=== PATIENT | male | born 1960 | race Caucasian/White ===

== ENCOUNTER 2019-07-14 14:25 | Day surgery (SDC) | payer BC, SELFPAY ==
[2019-07-14] VITALS (7 sets, daily range): BP systolic 128–172; BP diastolic 83–105; PULSE 87–101; RESP 16–25; TEMP 36.6–37.2; O2SAT 95–97
--- NOTE | 2019-07-14 14:52 | ED.GENADULT ---
HPI - General Adult General Chief complaint: Unspecified Stated complaint: Food bolus Time Seen by Provider: 07/14/19 14:28 Source: patient Mode of arrival: ambulatory Limitations: no limitations History of Present Illness HPI narrative: 59 m h/o being scoped 8 years ago for erosive esophagitis (dr varma) now w/ c/o esoph FB (steak) since last night spitting out, spit, cannot swallow Onset (ago): hour(s) Radiation: non-radiation Severity: moderate Pain Consistency: constant Relieving factors: none Exacerbating factors: eating Associated symptoms: denies other symptoms Treatments prior to arrival: none Related Data Home Medications Medication Instructions Recorded Confirmed amlodipine 5 mg PO DAILY 07/14/19 lisinopril 10 mg PO DAILY 07/14/19 loperamide [Imodium A-D] 2 mg PO QID 07/14/19 omeprazole 40 mg PO DAILY 07/14/19 Allergies Allergy/AdvReac Type Severity Reaction Status Date / Time latex Allergy Unknown Swelling Verified 07/14/19 14:36 of Lip/Tongue/Throat Review of Systems Review of Systems: All systems reviewed & are unremarkable except as noted in HPI and below Constitutional: Constitutional: Denies chills and Denies fever(s) ENT: Reports dysphagia and Denies sore throat Cardiovascular: Cardiovascular: Denies chest pain Respiratory: Respiratory: Denies cough and Denies dyspnea Gastrointestinal: Gastrointestinal: Denies nausea and Denies vomiting Genitourinary: Genitourinary: Reports no additional male genitourinary complaints Musculoskeletal: Musculoskeletal: Reports no additional musculoskeletal complaints Neurologic: Denies headache(s), Denies numbness and Denies weakness [facility] Family History Family History Sibling Family history of diabetes mellitus in first degree relative Mother Family history of lymphoma Patient's mother is Father Carcinoma of colon Social History Social History Smoking status: Heavy tobacco smoker Alcohol intake: current Gender identity (if verbalized by the patient): Male Exam Const: General: no acute distress and alert Orientation/consciousness: patient oriented x3 HENMT: Head: normal to inspection Mouth: Yes Normal oral and palatal mucosa present Eyes: Conjunctivae: conjunctivae normal EOM: EOMs intact bilaterally Neck: Neck: normal visual inspection and no lymphadenopathy Chest: Chest palpation & inspection: normal inspection of the chest Resp: Effort & Inspection: normal respiratory effort Auscultation: clear to auscultation bilaterally Cardio: Rate: regular rate Rhythm: regular rhythm GI: Inspection: non-distended GI Palp: Yes Soft to palpation and No Tenderness to palpation present (GI) Skin: General skin exam: normal color Rashes: no rashes Neuro: General: patient oriented x3 Extrem: General: normal to inspection Psych: Mental Status: mental status grossly normal Course Course Emergency Course: d/w gi, will go to gi Vital Signs Vital signs: Vital Signs Temperature 36.6 C 07/14/19 14:30 Pulse Rate 101 H 07/14/19 14:30 Respiratory Rate 18 07/14/19 14:30 Blood Pressure 164/105 H 07/14/19 14:30 Pulse Oximetry 95 07/14/19 14:30 Temperature 36.6 C 07/14/19 14:30 Pulse Rate 101 H 07/14/19 14:30 Respiratory Rate 18 07/14/19 14:30 Blood Pressure 164/105 H 07/14/19 14:30 Pulse Oximetry 95 07/14/19 14:30 Medical Decision Making Vital Signs Vital Signs: Vital Signs Temperature 36.6 C 07/14/19 14:30 Pulse Rate 101 H 07/14/19 14:30 Respiratory Rate 18 07/14/19 14:30 Blood Pressure 164/105 H 07/14/19 14:30 Pulse Oximetry 95 07/14/19 14:30 Temperature 36.6 C 07/14/19 14:30 Pulse Rate 101 H 07/14/19 14:30 Respiratory Rate 18 07/14/19 14:30 Blood Pressure 164/105 H 07/14/19 14:30 Pulse Oximetry 95 07/14/19 14:30
[2019-07-14] MEDS: LACTATED RINGERS 1,000 ML 30 ML IV CONT (15:06)
--- NOTE | 2019-07-14 15:41 | WPDANESEPPF ---
Anes - Initial Pre Proc Eval Procedure: Operation Date: 07/14/19 16:00 Proposed Procedures p Esophagogastroduodenoscopy/Stent Removal - Murtaaz Taveras MD Date/Time: 07/14/19 15:41 Surgeon: Murtaza Taveras MD Pre Op Diagnosis: Food bolus Patient Data Age: 59 Gender: M Height: 1.78 m Weight: 84.09 kg Last Vital Signs Temp 36.6 C 07/14/19 14:30 Pulse 96 07/14/19 15:35 Resp 18 07/14/19 15:35 BP 158/90 H 07/14/19 15:35 Pulse Ox 96 07/14/19 15:35 Allergies Allergy/AdvReac Type Severity Reaction Status Date / Time latex Allergy Unknown Swelling Verified 07/14/19 14:36 of Lip/Tongue/Throat Home Medications Medication Instructions Recorded Confirmed Type amlodipine 5 mg PO DAILY 07/14/19 History lisinopril 10 mg PO DAILY 07/14/19 History loperamide [Imodium A-D] 2 mg PO QID 07/14/19 History omeprazole 40 mg PO DAILY 07/14/19 History Patient hx anesthesia problems: none Family hx anesthesia problems: none PMFSH Past Medical History Medical History (Updated 07/14/19 @ 15:45 by Giorgio Browning MD) COPD (chronic obstructive pulmonary disease) Depression Esophageal foreign body ETOH abuse HTN (hypertension) Family History Family History Sibling Family history of diabetes mellitus in first degree relative Mother Family history of lymphoma Patient's mother is Father Carcinoma of colon Social History Social History Smoking status: Heavy tobacco smoker Alcohol intake: current Gender identity (if verbalized by the patient): Male Anes - Eval Final PreProcedure Day of Procedure 07/14/19 15:41 Patient weight: normal Heart: regular rate and rhythm Lungs: clear to auscultation and normal air movement Airway: Mallampati scale class II Neurological: alert and oriented Last oral intake: >/= 8 hours ASA classification: III Emergent: yes Anesthetic plan: proceed Anesthesia type and monitoring: general GIVS and ETT Informed Consent: The patient's anesthetic plan and its attendant risks and benefits were discussed with the patient/family/POA. Questions were solicited and answers provided to the satisfaction of the patient/family/POA.
--- NOTE | 2019-07-14 16:50 | WPDGICN ---
Assessment and Plan Assessment and plan (1) Esophageal foreign body: Qualifiers: Encounter type: initial encounter Qualified Code(s): T18.108A - Unspecified foreign body in esophagus causing other injury, initial encounter Code(s): T18.108A - Unspecified foreign body in esophagus causing other injury, initial encounter Status: Acute Assessment and Plan: we are going to proceed with urgent EGD given food bolus, more recommendations to follow (2) Dysphagia: Qualifiers: Dysphagia type: pharyngoesophageal phase Qualified Code(s): R13.14 - Dysphagia, pharyngoesophageal phase Code(s): R13.10 - Dysphagia, unspecified Status: Acute (3) Carlos esophagus: Qualifiers: Carlos's esophagus type: without dysplasia Qualified Code(s): K22.70 - Carlos's esophagus without dysplasia Code(s): K22.70 - Carlos's esophagus without dysplasia Status: Acute (4) ETOH abuse: Code(s): F10.10 - Alcohol abuse, uncomplicated Status: Acute (5) HTN (hypertension): Qualifiers: Hypertension type: essential hypertension Qualified Code(s): I10 - Essential (primary) hypertension Code(s): I10 - Essential (primary) hypertension Status: Acute GI Consult Note Consult date/time: 07/14/19 16:50 Reason for consult: food bolus HPI: Kosta Samson is a 59 year old male with history of erosive esophagitis and Carlos's esophagus with last EGD [address] Mason with balloon dilation up to 18 mm (had stricture), that EGD was a follow up after he had previous food bolus that was treated endoscopically. He is here after steak got stuck around 8 pm last night and since then unable to swallow even own saliva therefore came to ER. He is supposed to use omeprazole daily. Review of Systems Constitutional: Constitutional: Denies headache(s) and Denies weakness Eyes: Eyes: Denies blurry vision ENT: Reports Normal hearing present, Denies headache(s) and Denies neck pain Cardiovascular: Cardiovascular: Denies chest pain and Denies dyspnea Respiratory: Respiratory: Denies dyspnea Gastrointestinal: Gastrointestinal: Reports no additional gastrointestinal complaints Genitourinary: Genitourinary: Denies dysuria Musculoskeletal: Musculoskeletal: Denies neck pain Integumentary/Breasts: Skin/Breast: Denies dry skin Neurologic: Reports Normal hearing present, Denies headache(s) and Denies weakness Psychiatric: Psychiatric: Denies anxiety Endocrine: Endocrine: Denies change in body appearance Hematologic/Lymphatic: Hematologic/Lymphatic: Denies easy bleeding Allergic/Immunologic: Allergic/Immunologic: Denies urticaria PMFSH Past Medical History Medical History (Updated 07/14/19 @ 16:54 by Murtaza Taveras MD) Carlos esophagus COPD (chronic obstructive pulmonary disease) Depression Dysphagia Esophageal foreign body ETOH abuse HTN (hypertension) Family History Family History Sibling Family history of diabetes mellitus in first degree relative Mother Family history of lymphoma Patient's mother is Father Carcinoma of colon Social History Social History Smoking status: Heavy tobacco smoker Alcohol intake: current Gender identity (if verbalized by the patient): Male Meds Home Medications and Allergies Home Medications Medication Instructions Recorded Confirmed Type amlodipine 5 mg PO DAILY 07/14/19 History lisinopril 10 mg PO DAILY 07/14/19 History loperamide [Imodium A-D] 2 mg PO QID 07/14/19 History omeprazole 40 mg PO DAILY 07/14/19 History Allergies Allergy/AdvReac Type Severity Reaction Status Date / Time latex Allergy Unknown Swelling Verified 07/14/19 14:36 of Lip/Tongue/Throat Vital Signs Vital Signs - 24 hr 07/14/19 14:30 07/14/19 15:27 07/14/19 15:35
== END 2019-07-14 17:37 | disposition home or self-care (01) ==
LOC: ANHED 14:43 → ANHSURGERY 15:07
PROVIDERS: Emergency Provider Emergency Medicine; PCP Physician Assistant; Visit Provider Internal Medicine Gastroenterology
PROC: 0DP08DZ Removal of Intraluminal Device from Upper Intestinal Tract, Via Natural or Artificial Opening Endoscopic (ICD-10-PCS; CPT 43247; principal; 2019-07-14 16:00)
DX: T18.108A Unspecified foreign body in esophagus causing other injury, initial encounter (principal); K22.2 Esophageal obstruction; K44.9 Diaphragmatic hernia without obstruction or gangrene; I10 Essential (primary) hypertension; J44.9 Chronic obstructive pulmonary disease, unspecified; F32.9 Major depressive disorder, single episode, unspecified; F17.210 Nicotine dependence, cigarettes, uncomplicated
CPT/HCPCS: 43247; 99285; J2704; J7120

== ENCOUNTER 2019-09-20 08:38 | Emergency (ER) | payer BC, SELFPAY ==
--- NOTE | ~2019-09-20 | XR_ITS ---
XR lumbar spine min 4V 09/20/2019 10:47 Indication: Back pain after heavy lifting Procedure: 5 views lumbar spine Comparison: 11/19/2017 Findings: There is sacralization of L5. Vertebral body heights are maintained. There is mild disc kristel rowing at L1-2 and L4-5. Mild facet hypertrophy at L4-5. Small ventral osteophytes are noted at the t horacolumbar junction. There is atherosclerosis of the aorta. Sacral foramen are symmetric. There are extensive splenic arterial calcifications. No acute fracture or traumatic malalignment. Impression: 1: No acute abnormality of the lumbar spine. Reviewed, dictated and finalized at location A. Impression: 1: No acute abnormality of the lumbar spine.
[2019-09-20 08:48] VITALS: BP 164/42; PULSE 98; RESP 12; TEMP 36.7; O2SAT 98
[2019-09-20] MEDS: diazePAM 5 MG TABLET PO (10:51)
--- NOTE | 2019-09-20 11:11 | ED.BACK ---
HPI - Back Pain/Injury General Chief Complaint: Back Pain/Injury Stated Complaint: LOWER BACK PAIN, RAD DOWN L LEG Time Seen by Provider: 09/20/19 10:10 Source: patient Mode of arrival: ambulatory Limitations: no limitations History of Present Illness HPI Narrative: Patient is a 59-year-old male who presents with low back pain that began yesterday after lifting a heavy object patient has taken some ibuprofen with minimal improvement patient on arrival to emergency department notes he continues to have pain patient denies radicular symptoms or paresthesias on arrival is in the room in mild pain patient denies similar occurrence in the past Related Data Home Medications Medication Instructions Recorded Confirmed amlodipine 5 mg PO DAILY 07/14/19 lisinopril 10 mg PO DAILY 07/14/19 loperamide [Imodium A-D] 2 mg PO QID 07/14/19 omeprazole 40 mg PO DAILY 07/14/19 Allergies Allergy/AdvReac Type Severity Reaction Status Date / Time latex Allergy Unknown Swelling Verified 07/14/19 14:36 of Lip/Tongue/Throat Penicillins Allergy Unknown Verified 09/20/19 08:51 Review of Systems Review of Systems: All systems reviewed & are unremarkable except as noted in HPI and below PMFSH Past Medical History Medical History (Updated 09/20/19 @ 11:14 by Brendon Samson PA-C) Carlos esophagus COPD (chronic obstructive pulmonary disease) Depression Dysphagia Esophageal foreign body ETOH abuse HTN (hypertension) Surgical History Surgical History H/O colectomy Social History Social History Smoking status: Heavy tobacco smoker Alcohol intake: current Gender identity (if verbalized by the patient): Male Exam Narrative: Exam Narrative: GENERAL: Well-appearing, well-nourished, and in no acute distress. HEAD: Normocephalic, atraumatic. EYES: PERRLA and EOMI. ENT: Nares clear, no rhinorrhea or epistaxis. Mucous membranes moist. CHEST: Clear to auscultation. No respiratory distress. No wheezes rales or rhonchi HEART: Regular rate and rhythm. No murmur heard. EXTREMITIES: Normal range of motion. No edema. Spasm and tenderness of the left lumbar paraspinal musculature. No midline or right-sided tenderness SKIN: Warm, dry, no rash. NEURO: No focal deficits. Alert and oriented x3. Motor and sensory intact and symmetrical in the extremities PSYCH: Normal mood and affect. Course Course Emergency Course: Patient given medications in the emergency department made aware of case findings treatment plan and diagnosis Vital Signs Vital signs: Vital Signs Temperature 98.1 F 09/20/19 08:48 Pulse Rate 98 09/20/19 08:48 Respiratory Rate 12 09/20/19 08:48 Blood Pressure 164/42 H 09/20/19 08:48 Pulse Oximetry 98 09/20/19 08:48 Temperature 98.1 F 09/20/19 08:48 Pulse Rate 98 09/20/19 08:48 Respiratory Rate 12 09/20/19 08:48 Blood Pressure 164/42 H 09/20/19 08:48 Pulse Oximetry 98 09/20/19 08:48 MDM - Back Pain/Injury MDM Narrative Medical decision making narrative: Patients pain is positional in nature and localized to back without signs of cord compression or cauda equina based on neurological exam, skeletal exam and history. No fever or other significant factors to suggest osteomyelitis or spinal epidural abscess. No symptoms or signs to suggest pain is referred from abdominal or / cardiopulmonary sources. No pulsatile masses noted on exam. Patient ambulates with steady gait and is stable for outpatient management given case findings. Discharge Plan Discharge Clinical Impression: Acute low back pain Patient Disposition: Home, Self-Care Condition: Stable Instructions: Antibiotic Form, Acute Low Back Pain (ED) Additional Instructions: Medications as needed and prescribed. Limit lifting and bending. You may apply heat or cold to the area as need
[2019-09-20 11:30] VITALS: BP 160/76; PULSE 70; RESP 16; O2SAT 99
== END 2019-09-20 11:32 | disposition home or self-care (01) ==
PROVIDERS: Emergency Provider Emergency Medicine; PCP Physician Assistant
DX: M54.5 Low back pain (principal); F17.200 Nicotine dependence, unspecified, uncomplicated; K22.70 Barrett's esophagus without dysplasia; J44.9 Chronic obstructive pulmonary disease, unspecified; I10 Essential (primary) hypertension
CPT/HCPCS: 72110; 99283; A9270

== ENCOUNTER 2021-12-10 08:24 | Outpatient (NON) | payer OTHER, SELFPAY | END 2021-12-10 08:25 | disposition home or self-care (01) | PROVIDERS: PCP Physician Assistant; Visit Provider Internal Medicine Gastroenterology | DX: Z12.11 Encounter for screening for malignant neoplasm of colon (principal); K63.5 Polyp of colon; K22.70 Barrett's esophagus without dysplasia | CPT/HCPCS: 88305 ==

== ENCOUNTER 2021-12-10 12:21 | Day surgery (SDC) | payer OTHER, SELFPAY ==
[2021-12-02 09:44] VITALS: BMI 25.9
--- NOTE | 2021-12-02 09:48 | PC.NURSE ---
PT STATES HE HAS A LOOSE TOOTH. INSTRUCTED PT TO NOTIFY ANESTHESIOLOGIST DAY OF PROCEDURE. PT VERBALIZED UNDERSTANDING.
[2021-12-10 12:49] VITALS: BP 169/88; PULSE 96; RESP 16; TEMP 36.8; O2SAT 99
[2021-12-10] MEDS: LACTATED RINGERS 1,000 ML 150 ML IV CONT (13:01)
--- NOTE | 2021-12-10 13:25 | WPDANESEPPF ---
Anes - Initial Pre Proc Eval Procedure: Operation Date: 12/10/21 14:00 Proposed Procedures p Esophagogastroduodenoscopy - Murtaza Taveras MD s Screening Colonoscopy - Murtaza Taveras MD Date/Time: 12/10/21 13:25 Surgeon: Murtaza Taveras MD Pre Op Diagnosis: Gerd and Neoplasm Screening Patient Data Age: 61 Gender: M Height: 1.78 m Weight: 79.9 kg Last Vital Signs Temp 36.8 C 12/10/21 12:49 Pulse 96 12/10/21 12:49 Resp 16 12/10/21 12:49 BP 169/88 H 12/10/21 12:49 Pulse Ox 99 12/10/21 12:49 O2 Del Method Room Air 12/10/21 12:49 Allergies Allergy/AdvReac Type Severity Reaction Status Date / Time latex Allergy Unknown Swelling Verified 12/10/21 12:47 of Lip/Tongue/Throat Penicillins Allergy Unknown Verified 12/10/21 12:47 Home Medications Medication Instructions Recorded Confirmed Type amlodipine 5 mg tablet 5 mg PO DAILY 07/14/19 12/10/21 History lisinopril 10 mg tablet 10 mg PO DAILY 07/14/19 12/10/21 History loperamide 2 mg capsule (Imodium 2 mg PO DAILY 07/14/19 12/10/21 History A-D) omeprazole 40 mg capsule,delayed 40 mg PO DAILY 07/14/19 12/10/21 History release ibuprofen 600 mg tablet 600 mg PO TID 12/02/21 12/10/21 History Patient hx anesthesia problems: none Family hx anesthesia problems: none Results Review: All pre-operative results and documents have been reviewed as part of the pre-operative evaluation. [facility] Past Medical History Medical History Carlos esophagus COPD (chronic obstructive pulmonary disease) Depression Dysphagia Esophageal foreign body ETOH abuse HTN (hypertension) Surgical History Surgical History (Updated 12/10/21 @ 13:25 by Bob Gray MD) H/O colectomy History of nephrectomy Family History Family History Sibling Family history of diabetes mellitus in first degree relative Mother Family history of lymphoma Patient's mother is Father Carcinoma of colon Social History Social History Smoking packs per day: 2 Smoking cigarettes per day: 40.0 Years smoked: 45 Smoking pack-years: 90.00 Smoking status: Heavy tobacco smoker Tobacco type: cigarettes Alcohol intake: current Drinks per week: 56 Alcohol use details: 8 BEERS PER DAY Substance use: never Substance use type: does not use Living arrangements: with family Gender identity (if verbalized by the patient): Male Spiritual care concerns: No Anes - Eval Final PreProcedure Day of Procedure 12/10/21 13:25 Patient weight: overweight Heart: regular rate and rhythm Lungs: clear to auscultation Airway: Mallampati scale class II and special considerations poor dentition (loose lower teeth) Last oral intake: >/= 8 hours ASA classification: III Emergent: no Anesthetic plan: proceed Anesthesia type and monitoring: general GIVS and standard monitoring Results Review: All pre-operative results and documents have been reviewed as part of the pre-operative evaluation. Informed Consent: The patient's anesthetic plan and its attendant risks and benefits were discussed with the patient/family/POA. Questions were solicited and answers provided to the satisfaction of the patient/family/POA.
--- NOTE | 2021-12-10 13:49 | PM.HPGS ---
History of Present Illness History of Present Illness Consent: Risks, benefits, and alternatives have been discussed and questions answered. Patient agrees to proceed with procedure. Chief complaint: Gerd and Neoplasm Screening Narrative: Kosta Samson is a 61 year old male with jalloh's and food bolus in 2019 that required urgent EGD, now using omeprazole daily, he has intermittent dysphagia and has not had repeat egd yet. Also due to have another colonoscopy, last one about 10 yeras ago, he has partial colectomy Review of Systems Constitutional: Constitutional: Denies headache(s) and Denies weakness Eyes: Eyes: Denies blurry vision ENT: Reports Normal hearing present, Denies headache(s) and Denies neck pain Cardiovascular: Cardiovascular: Denies chest pain and Denies dyspnea Respiratory: Respiratory: Denies dyspnea Gastrointestinal: Gastrointestinal: Reports no additional gastrointestinal complaints Genitourinary: Genitourinary: Denies dysuria Musculoskeletal: Musculoskeletal: Denies neck pain Integumentary/Breasts: Skin/Breast: Denies dry skin Neurologic: Reports Normal hearing present, Denies headache(s) and Denies weakness Psychiatric: Psychiatric: Denies anxiety Endocrine: Endocrine: Denies change in body appearance Hematologic/Lymphatic: Hematologic/Lymphatic: Denies easy bleeding Allergic/Immunologic: Allergic/Immunologic: Denies urticaria PMFSH Past Medical History Medical History (Updated 12/10/21 @ 13:50 by Murtaza Taveras MD) Jalloh esophagus Colon cancer screening COPD (chronic obstructive pulmonary disease) Depression Dysphagia Esophageal foreign body ETOH abuse HTN (hypertension) Surgical History Surgical History (Updated 12/10/21 @ 13:25 by Bob Gray MD) H/O colectomy History of nephrectomy Family History Family History Sibling Family history of diabetes mellitus in first degree relative Mother Family history of lymphoma Patient's mother is Father Carcinoma of colon Social History Social History Smoking packs per day: 2 Smoking cigarettes per day: 40.0 Years smoked: 45 Smoking pack-years: 90.00 Smoking status: Heavy tobacco smoker Tobacco type: cigarettes Alcohol intake: current Drinks per week: 56 Alcohol use details: 8 BEERS PER DAY Substance use: never Substance use type: does not use Living arrangements: with family Gender identity (if verbalized by the patient): Male Spiritual care concerns: No Meds Home Medications and Allergies Home Medications Medication Instructions Recorded Confirmed Type amlodipine 5 mg tablet 5 mg PO DAILY 07/14/19 12/10/21 History lisinopril 10 mg tablet 10 mg PO DAILY 07/14/19 12/10/21 History loperamide 2 mg capsule (Imodium 2 mg PO DAILY 07/14/19 12/10/21 History A-D) omeprazole 40 mg capsule,delayed 40 mg PO DAILY 07/14/19 12/10/21 History release ibuprofen 600 mg tablet 600 mg PO TID 12/02/21 12/10/21 History Allergies Allergy/AdvReac Type Severity Reaction Status Date / Time latex Allergy Unknown Swelling Verified 12/10/21 12:47 of Lip/Tongue/Throat Penicillins Allergy Unknown Verified 12/10/21 12:47 Vital Signs Vital Signs - 24 hr 12/10/21 12:49 Temperature 98.2 F Pulse Rate 96 Respiratory Rate 16 Blood Pressure 169/88 H Pulse Oximetry 99 Oxygen Delivery Room Air Exam Const: General: comfortable and no acute distress HENMT: General nose exam: Normal nares present Eyes: General: appearance normal, both eyes and all related structures Neck: Neck: no JVD Resp: Auscultation: clear to auscultation bilaterally Cardio: Rate: regular rate Rhythm: regular rhythm GI: Inspection: non-distended GI Palp: Yes Soft to palpation Skin: General skin exam: normal color Neuro: General: gait normal Speech: nor
[2021-12-10 14:25] VITALS: BP 136/76; PULSE 68; RESP 18; O2SAT 98
--- NOTE | 2021-12-10 14:33 | WPDANESPN ---
Anes - Prog Note Post-Op Date/Time: 12/10/21 14:33 Cardiovascular status: normal Respiratory status: normal Airway patency: baseline Mental status: baseline Post-Op hydration status: normal Vital Signs: Last Vital Signs Temp 36.8 C 12/10/21 12:49 Pulse 68 12/10/21 14:25 Resp 18 12/10/21 14:25 BP 136/76 12/10/21 14:25 Pulse Ox 98 12/10/21 14:25 O2 Del Method Room Air 12/10/21 14:25 Pain Score (VAS): 0/10 I/O: Intake & Output 12/09/21 12/10/21 12/10/21 23:59 07:59 15:59 Intake Total 450 Balance 450 Patient Feedback: Patient satisfied with anesthetic care.
[2021-12-10 14:35] VITALS: BP 132/76; PULSE 70; RESP 18; O2SAT 98
[2021-12-10 14:45] VITALS: BP 147/80; PULSE 71; RESP 18; O2SAT 98
== END 2021-12-10 14:55 | disposition home or self-care (01) ==
PROVIDERS: PCP Physician Assistant; Visit Provider Internal Medicine Gastroenterology
PROC: 0DJ08ZZ Inspection of Upper Intestinal Tract, Via Natural or Artificial Opening Endoscopic (ICD-10-PCS; CPT 43235; principal; 2021-12-10 14:00)
PROC: 0DJD8ZZ Inspection of Lower Intestinal Tract, Via Natural or Artificial Opening Endoscopic (ICD-10-PCS; CPT 45378; 2021-12-10 14:00)
DX: Z12.11 Encounter for screening for malignant neoplasm of colon (principal)
CPT/HCPCS: 45385; 43239

== ENCOUNTER 2022-02-27 13:54 | Outpatient (CLI) | payer OTHER, SELFPAY ==
--- NOTE | ~2022-02-27 | MR_ITS ---
EXAMINATION: MR lumbar spine wo/w con DATE: 02/27/2022 14:42 INDICATION: Right-sided lumbar back pain and radiculopathy extending down the right leg TECHNIQUE: Magnetic resonance imaging (MRI) of the lumbar spine was performed without and with 17 mL Multihance intravenous contrast. Sequences included sagittal T2-weighted FSE, sagittal T2-weighted FS FSE, and sagittal and axial T1-weighted FSE. Postcontrast sequences included axial T2-weighted FSE, sagittal T1-weighted FSE, and axial and sagittal T1-weighted FS FSE. COMPARISON: Chest CT dated 06/26/2009 FINDINGS: Bilateral hypoplastic riblets at T12. Bilaterally sacralized L5 segment. Minimal likely physiologic a nterior wedging at T11 and T12. Lumbar vertebral body heights are normal. Moderate disc height loss w ith mild anterior fibers best or degenerative endplate changes at L1-L2. No pathologic marrow replaci ng process. Mild disc height loss at L3-L4 and L4-L5. Annular fissure at L4-L5. The conus medullaris terminates at L1. There is normal signal in the caudal spinal cord with no abnormally enhancing cord lesions. 8 mm nonenhancing T2 hyperintense right renal cyst. Foci of susceptibility artifact in the posterior paraspinal soft tissues and suggestion of likely prior posterior decompression with left he milaminotomy. Correlate with surgical history. Paravertebral soft tissues are otherwise unremarkable . The following disc levels are specifically discussed: T11-T12: The disc does not extend beyond the endplate margin. There is mild left and moderate right f acet joint osteoarthritis. There is no neural foraminal stenosis. There is no central canal stenosis. T12-L1: The disc does not extend beyond the endplate margin. There is mild to moderate bilateral face t joint osteoarthritis. There is no neural foraminal stenosis. There is no central canal stenosis. L1-L2: Disc is bulging. There is moderate bilateral facet joint osteoarthritis. There is a bilateral, right greater than left neural foraminal stenosis. There is mild central canal stenosis. L2-L3: Small bilateral foraminal zone disc protrusions. There is mild right and mild to moderate left facet joint osteoarthritis. There is mild bilateral neural foraminal stenosis. There is no central c anal stenosis. L3-L4: Disc is mildly bulging. There is moderate bilateral facet joint osteoarthritis. There is mild bilateral neural foraminal stenosis. There is mild central canal stenosis. L4-L5: Disc is bulging with superimposed annular fissure and small left foraminal zone disc extrusion with disc material extending up to 2-3 mm cephalad to the level of the inferior endplate of L4. Ther e is severe bilateral facet joint osteoarthritis. There is associated edema and enhancement in the martin barticular right superior anterior process of the L4 and in the periarticular soft tissues. 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 There is mild right and moderate left neural foraminal st enosis. There is no central canal stenosis. L5-S1: Hypoplastic disc space which appears fused along the posterior margin. There is moderate bilat eral facet joint osteoarthritis. There is no neural foraminal stenosis. There is no central canal krystal nosis. IMPRESSION: 1. Moderate lumbar spondylosis. Reviewed, dictated and finalized at location A. AIGN ADVISOR
== END 2022-02-27 13:55 ==
PROVIDERS: PCP Physician Assistant; Visit Provider Anesthesiology Pain Medicine
DX: M96.1 Postlaminectomy syndrome, not elsewhere classified (principal); M47.896 Other spondylosis, lumbar region
CPT/HCPCS: 72158; A9577

== ENCOUNTER 2022-05-20 08:25 | Day surgery (SDC) | payer OTHER, SELFPAY ==
[2022-05-20] VITALS (10 sets, daily range): BP systolic 124–170; BP diastolic 70–93; PULSE 93–102; RESP 16–30; TEMP 36.5–36.8; O2SAT 96–100
--- NOTE | ~2022-05-20 | XR_ITS ---
XR chest 2V 05/20/2022 10:04 Indication: Esophageal foreign body. History of esophageal stricture. Procedure: 2 view chest Comparison: 10/30/2011 Findings: Heart size normal. There is atherosclerosis and mild ectasia of the aorta. Small right pleu ral effusion. No focal pneumonia, edema or pneumothorax. No radiopaque foreign bodies. Impression: 1: Small right pleural effusion. Reviewed, dictated and finalized at location B. ULATOR Impression: 1: Small right pleural effusion.
--- NOTE | 2022-05-20 09:35 | ED.GENADULT ---
HPI - General Adult General Chief complaint: Skin/Abscess/Foreign Body <Dayna Hobbs APRN - Last Filed: 05/20/22 17:38> Stated complaint: PORK STUCK IN THROAT <Dayna Hobbs APRN - Last Filed: 05/20/22 17:38> Time Seen by Provider: 05/20/22 09:33 <Dayna Hobbs APRN - Last Filed: 05/20/22 17:38> Source: patient <Dayna Hobbs APRN - Last Filed: 05/20/22 17:38> Mode of arrival: ambulatory <Dayna Hobbs APRN - Last Filed: 05/20/22 17:38> Limitations: no limitations <Dayna Hobbs APRN - Last Filed: 05/20/22 17:38> History of Present Illness HPI narrative: 62-year-old male presents today with concerns of possible pork stuck in his throat. Patient states he was eating supper last night when he felt like pork got stuck in her throat. Patient unable to tolerate fluids and spitting all oral secretions out. States been like this since last night. Denies any abdominal pain or chest pain. Patient does have a history of having esophageal dilatations at the past. Last EGD per patient was in February. <Dayna Hobbs APRN - Last Filed: 05/20/22 17:38> Onset (ago): hour(s) <Dayna Hobbs APRN - Last Filed: 05/20/22 17:38> Related Data Home medications: Home Medications Medication Instructions Recorded Confirmed amlodipine 5 mg tablet 5 mg PO DAILY 07/14/19 05/20/22 lisinopril 10 mg tablet 10 mg PO DAILY 07/14/19 05/20/22 loperamide 2 mg capsule (Imodium 2 mg PO DAILY 07/14/19 05/20/22 A-D) omeprazole 40 mg capsule,delayed 40 mg PO DAILY 07/14/19 05/20/22 release ibuprofen 600 mg tablet 600 mg PO TID 12/02/21 05/20/22 <Dayna Hobbs APRN - Last Filed: 05/20/22 17:38> Allergies/adverse reactions: Allergies Allergy/AdvReac Type Severity Reaction Status Date / Time latex Allergy Unknown Swelling Verified 05/20/22 12:34 of Lip/Tongue/Throat Penicillins Allergy Unknown Verified 05/20/22 12:34 <Dayna Hobbs APRN - Last Filed: 05/20/22 17:38> Review of Systems Review of Systems: CONSTITUTIONAL: Denies fever, chills, or sweats. EYES: Denies visual changes, redness, or discharge. ENT: Denies rhinorrhea, congestion, sore throat, or otalgia. CARDIOVASCULAR: Denies chest pain, palpitations, or edema. RESPIRATORY: Denies cough or dyspnea. GASTROINTESTINAL: Feeling of food stuck in his throat. Inability to swallow own saliva or water. Vomits any oral intake. Denies abdominal pain diarrhea. GENITOURINARY: Denies dysuria or hematuria. SKIN: Denies rash or itching. MUSCULOSKELETAL: Denies back pain, joint pain, or myalgia. NEUROLOGIC: Denies headache, numbness, dizziness, or weakness. PSYCHIATRIC: Denies anxiety or depression. <Dayna Hobbs APRN - Last Filed: 05/20/22 17:38> [facility] Past Medical History Medical History: Medical History Carlos esophagus Colon cancer screening COPD (chronic obstructive pulmonary disease) Depression Dysphagia Esophageal foreign body ETOH abuse HTN (hypertension) <Dayna Hobbs APRN - Last Filed: 05/20/22 17:38> Surgical History Surgical History: Surgical History H/O colectomy History of nephrectomy <Dayna Hobbs APRN - Last Filed: 05/20/22 17:38> Family History Family History: Family History Sibling Family history of diabetes mellitus in first degree relative Mother Family history of lymphoma Patient's mother is Father Carcinoma of colon <Dayna Hobbs APRN - Last Filed: 05/20/22 17:38> Social History Social History: Social History Smoking packs per day: 2 Smoking cigarettes per day: 40.0 Years smoked: 45 Smoking pack-years: 90.00 Smoking status: Heavy tobacco smoker Tobacco type: cigarettes Alcohol intake: current
[2022-05-20 09:59] LABS: Basophils Percent Auto 0.6 % (0.2-1.2); Eosinophils Absolute Auto 0.1 K/mm3 (0-0.3); Eosinophils Percent Auto 0.7 % (0-4.4); Hematocrit 46.7 % (42.0-52.0); Hemoglobin 15.9 g/dL (14.0-18.0); Immature Granulocyte Absolute 0.03 K/mm3 (0.00-0.031); Immature Granulocyte Percent A 0.4 % (0-0.5); Lymphocytes Absolute Auto 0.79 K/mm3 (0.9-3.2); Lymphocytes Percent Auto 11.4 % (18.3-44.2); Mean Corpuscular Hemoglobin 37.4 pg (26-34); Mean Corpuscular Volume 109.9 fl (80-100); Mean Platelet Volume 10.3 fl (7.4-10.4); Monocytes Absolute Auto 0.5 K/mm3 (0.1-0.6); Monocytes Percent Auto 7.3 % (2.6-8.5); Neutrophils Absolute Auto 5.5 K/mm3 (1.3-6.7); Neutrophils Percent Auto 79.6 % (45.5-73.1); Platelet Count Result 197 k/mm3 (150-375); Red Blood Count 4.25 M/mm3 (4.6-6.20); Red Cell Distribution Width 13.1 % (11.5-14.5)
[2022-05-20] MEDS: ONDANSETRON INJ 4 MG/2 ML VIAL IV PUSH (10:12)
[2022-05-20] MEDS: SODIUM CHLORIDE 0.9% IV 1,000 ML 999 ML IV CONT (10:14)
[2022-05-20 10:25] LABS: Alanine Aminotransferase 26 U/L (6-50); Albumin Level 4.9 g/dL (3.5-5.1); Alkaline Phosphatase 34 U/L (38-126); Anion Gap 11 mmol/L (8-16); Aspartate Amino Transferase 33 U/L (17-59); Blood Urea Nitrogen 13 mg/dL (9-20); Calcium 9.7 mg/dL (8.4-10.2); Carbon Dioxide 21 mmol/L (22-30); Chloride 106 mmol/L (98-107); Estimated CRCL calculation 99 ml/min; Estimated Glomerular Filt Rate > 60; Glucose 119 mg/dL (65-110); Potassium 4.6 mmol/L (3.4-5.0); Sodium 138 mmol/L (137-145)
[2022-05-20] MEDS: LACTATED RINGERS 1,000 ML 150 ML IV CONT (12:39)
--- NOTE | 2022-05-20 12:50 | WPDANESEPPF ---
Anes - Initial Pre Proc Eval Procedure: Operation Date: 05/20/22 15:30 Proposed Procedures p Esophagogastroduodenoscopy - Murtaza Taveras MD Date/Time: 05/20/22 12:50 Surgeon: Murtaza Taveras MD Pre Op Diagnosis: PORK STUCK IN THROAT Patient Data Age: 62 Gender: M Height: 1.78 m Weight: 79.5 kg Last Vital Signs Temp 97.7 F 05/20/22 12:35 Pulse 98 05/20/22 12:35 Resp 20 05/20/22 12:35 BP 168/79 H 05/20/22 12:35 Pulse Ox 99 05/20/22 12:35 O2 Del Method Room Air 05/20/22 12:35 Allergies Allergy/AdvReac Type Severity Reaction Status Date / Time latex Allergy Unknown Swelling Verified 05/20/22 12:34 of Lip/Tongue/Throat Penicillins Allergy Unknown Verified 05/20/22 12:34 Home Medications Medication Instructions Recorded Confirmed Type amlodipine 5 mg tablet 5 mg PO DAILY 07/14/19 05/20/22 History lisinopril 10 mg tablet 10 mg PO DAILY 07/14/19 05/20/22 History loperamide 2 mg capsule (Imodium 2 mg PO DAILY 07/14/19 05/20/22 History A-D) omeprazole 40 mg capsule,delayed 40 mg PO DAILY 07/14/19 05/20/22 History release ibuprofen 600 mg tablet 600 mg PO TID 12/02/21 05/20/22 History Laboratory Tests 05/20/22 05/20/22 09:49 09:49 WBC 7.0 K/mm3 K/mm3 (4.5-10.0) RBC 4.25 M/mm3 L M/mm3 (4.6-6.20) Hgb 15.9 g/dL g/dL (14.0-18.0) Hct 46.7 % % (42.0-52.0) MCV 109.9 fl H fl (80-100) MCH 37.4 pg H pg (26-34) MCHC 34.0 g/dl g/dl (32-36) RDW 13.1 % % (11.5-14.5) Plt Count 197 k/mm3 k/mm3 (150-375) MPV 10.3 fl fl (7.4-10.4) Immature Gran % (Auto) 0.4 % % (0-0.5) Neut % (Auto) 79.6 % H % (45.5-73.1) Lymph % (Auto) 11.4 % L % (18.3-44.2) [place] % (Auto) 7.3 % % (2.6-8.5) Eos % (Auto) 0.7 % % (0-4.4) Baso % (Auto) 0.6 % % (0.2-1.2) Lymph # (Auto) 0.79 K/mm3 L K/mm3 (0.9-3.2) [place] # (Auto) 0.5 K/mm3 K/mm3 (0.1-0.6) Eos # (Auto) 0.1 K/mm3 K/mm3 (0-0.3) Baso # (Auto) 0.0 K/mm3 K/mm3 (0.0-0.1) Abs Immat Gran (auto) 0.03 K/mm3 K/mm3 (0.00-0.031) Absolute Neuts (auto) 5.5 K/mm3 K/mm3 (1.3-6.7) Absolute Nucleated RBC 0.0 K/mm3 K/mm3 (0.0-0.012) Nucleated RBC % 0.0 % % (0.0-0.2) Sodium 138 mmol/L mmol/L (137-145) Potassium 4.6 mmol/L mmol/L (3.4-5.0) Chloride 106 mmol/L mmol/L (98-107) Carbon Dioxide 21 mmol/L L mmol/L (22-30) Anion Gap 11 mmol/L mmol/L (8-16) BUN 13 mg/dL mg/dL (9-20) Creatinine 0.70 mg/dL mg/dL (0.7-1.3) Estim Creat Clear Calc 99 ml/min ml/min Estimated GFR > 60 (59 - ) Glucose 119 mg/dL H mg/dL (65-110) Calcium 9.7 mg/dL mg/dL (8.4-10.2) Total Bilirubin 1.0 mg/dL mg/dL (0.2-1.3) AST 33 U/L U/L (17-59) ALT 26 U/L U/L (6-50) Alkaline Phosphatase 34 U/L L U/L (38-126) Total Protein 8.0 g/dL g/dL (6.3-8.2) Albumin 4.9 g/dL g/dL (3.5-5.1) Patient hx anesthesia problems: none Family hx anesthesia problems: none Results Review: All pre-operative results and documents have been reviewed as part of the pre-operative evaluation. [facility] Past Medical History Medical History (Updated 12/10/21 @ 13:50 by Murtaza Taveras MD) Carlos esophagus Colon cancer screening COPD (chronic obstructive pulmonary disease) Depression Dysphagia Esophageal foreign body ETOH abuse HTN (hypertension) Surgical History Surgical History (Updated 12/10/21 @ 13:25 by Bob Gray MD) H/O colectomy History of nephrectomy Family History Family History Sibling Family history of diabetes mellitus in first degree relative Mother Family history of lymphoma Patient's mother is Father Carcinoma of colon Social
--- NOTE | 2022-05-20 12:58 | PM.HPGS ---
History of Present Illness History of Present Illness Consent: Risks, benefits, and alternatives have been discussed and questions answered. Patient agrees to proceed with procedure. 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 He is here because unable to swallow food after eating pork for dinner, still spiting out saliva. He is on omeprazole. Review of Systems Constitutional: Constitutional: Denies headache(s) and Denies weakness Eyes: Eyes: Denies blurry vision ENT: Reports Normal hearing present, Denies headache(s) and Denies neck pain Cardiovascular: Cardiovascular: Denies chest pain and Denies dyspnea Respiratory: Respiratory: Denies dyspnea Gastrointestinal: Gastrointestinal: Reports no additional gastrointestinal complaints Genitourinary: Genitourinary: Denies dysuria Musculoskeletal: Musculoskeletal: Denies neck pain Integumentary/Breasts: Skin/Breast: Denies dry skin Neurologic: Reports Normal hearing present, Denies headache(s) and Denies weakness Psychiatric: Psychiatric: Denies anxiety Endocrine: Endocrine: Denies change in body appearance Hematologic/Lymphatic: Hematologic/Lymphatic: Denies easy bleeding Allergic/Immunologic: Allergic/Immunologic: Denies urticaria PMFSH Past Medical History Medical History (Updated 12/10/21 @ 13:50 by Murtaza Taveras MD) Carlos esophagus Colon cancer screening COPD (chronic obstructive pulmonary disease) Depression Dysphagia Esophageal foreign body ETOH abuse HTN (hypertension) Surgical History Surgical History (Updated 12/10/21 @ 13:25 by Bob Gray MD) H/O colectomy History of nephrectomy Family History Family History Sibling Family history of diabetes mellitus in first degree relative Mother Family history of lymphoma Patient's mother is Father Carcinoma of colon Social History Social History Smoking packs per day: 2 Smoking cigarettes per day: 40.0 Years smoked: 45 Smoking pack-years: 90.00 Smoking status: Heavy tobacco smoker Tobacco type: cigarettes Alcohol intake: current Drinks per week: 56 Alcohol use details: 8 BEERS PER DAY Substance use: never Substance use type: does not use Living arrangements: with family Gender identity (if verbalized by the patient): Male Spiritual care concerns: No Meds Home Medications and Allergies Home Medications Medication Instructions Recorded Confirmed Type amlodipine 5 mg tablet 5 mg PO DAILY 07/14/19 05/20/22 History lisinopril 10 mg tablet 10 mg PO DAILY 07/14/19 05/20/22 History loperamide 2 mg capsule (Imodium 2 mg PO DAILY 07/14/19 05/20/22 History A-D) omeprazole 40 mg capsule,delayed 40 mg PO DAILY 07/14/19 05/20/22 History release ibuprofen 600 mg tablet 600 mg PO TID 12/02/21 05/20/22 History Allergies Allergy/AdvReac Type Severity Reaction Status Date / Time latex Allergy Unknown Swelling Verified 05/20/22 12:34 of Lip/Tongue/Throat Penicillins Allergy Unknown Verified 05/20/22 12:34 Vital Signs Vital Signs - 24 hr 05/20/22 08:39 05/20/22 09:00 05/20/22 09:30 Temperature 98.3 F Pulse Rate 101 H 102 H 96 Respiratory Rate 24 H Blood Pressure 163/86 H 149/87 H 159/89 H Pulse Oximetry 97 97 97 Oxygen Delivery Room Air 05/20/22 10:15 05/20/22 11:35 05/20/22 12:25 Temperature Pulse Rate 96 97 98 Respiratory Rate 20 20 16 Blood Pressure 170/87 H 164/93 H 164/93 H Pulse Oximetry 97 97 98 Oxygen Delivery 05/20/22 12:35 Temperature 97.7 F Pulse Rate 98 Respiratory Rate 20 Blood Pressure 168/79 H Pulse Oximetry 99 Oxygen Delivery Room Air Exam Const: General: comfortable and no acute distress HENMT:
== END 2022-05-20 13:54 | disposition home or self-care (01) ==
PROVIDERS: Emergency Provider Nurse Practitioner Family; PCP Physician Assistant; Visit Provider Internal Medicine Gastroenterology
PROC: 0DJ08ZZ Inspection of Upper Intestinal Tract, Via Natural or Artificial Opening Endoscopic (ICD-10-PCS; CPT 43235; principal; 2022-05-20 15:30)
DX: T18.108A Unspecified foreign body in esophagus causing other injury, initial encounter (principal); K22.2 Esophageal obstruction; K44.9 Diaphragmatic hernia without obstruction or gangrene; I10 Essential (primary) hypertension; J44.9 Chronic obstructive pulmonary disease, unspecified; F32.A Depression, unspecified; F17.210 Nicotine dependence, cigarettes, uncomplicated; Z90.5 Acquired absence of kidney; Z90.49 Acquired absence of other specified parts of digestive tract
CPT/HCPCS: 43247; 36415; 71046; 80053; 85025; 96361; 96374; 99285; J2405; J2704; J7030; J7120

== ENCOUNTER 2023-01-07 08:54 | Emergency (ER) | payer OTHER, SELFPAY ==
[2023-01-07] VITALS (21 sets, daily range): BP systolic 118–179; BP diastolic 68–99; PULSE 69–102; RESP 14–20; TEMP 36.3–36.6; O2SAT 95–100
--- NOTE | ~2023-01-07 | CT_ITS ---
EXAMINATION: CT brain wo con DATE: 01/07/2023 11:52 INDICATION: Dizziness, vertigo TECHNIQUE: Computed tomography (CT) of the head was performed without intravenous contrast. The mA wa s adjusted according to patient size. Iterative reconstruction technique was employed. Exam dose: 68 1.00 mGy-cm total exam DLP. COMPARISON: None FINDINGS: Bilateral vertebral artery, basilar artery and very prominent bilateral carotid siphon inte rnal carotid artery calcifications. There is asymmetric diminished attenuation in the posterior right cerebellar hemisphere suggesting martin bacute or old infarct. No intracranial mass lesion or hemorrhage or cerebrovascular accident is detected otherwise. No midli ne shift or mass effect. No subdural or epidural hematoma. There is mild mucoperiosteal thickening in the posterolateral inferior left sphenoid sinus. Right fro ntal sinus is not developed. The mastoid air cells and included paranasal sinuses otherwise appear no rmally developed and aerated. No fracture or bone destruction of the cranial vault. 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 Reviewed, dictated and finalized at location L.
--- NOTE | ~2023-01-07 | CT_ITS ---
CT ANGIOGRAM NECK AND HEAD History: Subacute infarct, dizziness. Technique: Serial spiral axial images through the head and neck were obtained during arterial phase I V injection of 100 cc of Omnipaque 350. 3-D postprocessing and MIP images were then reconstructed on the remote workstation. Dose reduction technique was used on this scan by utilizing automated exposur e control and iterative reconstruction technique. The dose-length product (DLP) was 1353.94 mGy-cm. CTA neck findings: Bilateral vertebral arteries are patent. There are scattered atherosclerotic calc ifications of the bilateral vertebral arteries, with probable areas of moderate stenosis at the origi n of left vertebral artery, distal left vertebral artery, and mid right vertebral artery. Evaluation of the carotid bifurcation region is a somewhat suboptimal due to motion artifact on the e xam. There are probable extensive calcified plaques of the bilateral proximal internal carotid arteri es, with probable high-grade (greater than 90%) stenoses of the bilateral proximal internal carotid a rteries. The proximal right internal carotid artery demonstrates 95% stenosis relative to the normal distal artery lumen diameter. The proximal left internal carotid artery demonstrates 95% stenosis rel ative to the normal distal artery lumen diameter. CTA head findings: Basilar artery and posterior sugars are patent. There is extensive atherosclerotic calcification in the cavernous portions of the distal internal carotid arteries, with probable areas of moderate to high-grade stenosis throughout these regions. Bilateral middle cerebral and anterior cerebral arteries are patent. No aneurysm evident. Impression: Probable high-grade, 95% stenoses of the bilateral proximal internal carotid arteries. Evaluation is suboptimal due to motion artifact in this region. Consider repeat exam or alternative imaging exam to further assess (such as carotid duplex exam or MRA). Extensive moderate to high-grade stenoses throughout the cavernous portions of the distal internal ca rotid arteries with extensive atherosclerotic calcification. Scattered moderate areas of stenosis in the bilateral vertebral arteries related to assess for calcif ication, as detailed above. Reviewed, dictated and finalized at location M. Impression: Probable high-grade, 95% stenoses of the bilateral proximal internal carotid ar teries. Evaluation is suboptimal due to motion artifact in this region. Conside r repeat exam or alternative imaging exam to further assess (such as carotid du plex exam or MRA). Extensive moderate to high-grade stenoses throughout the cavernous portions of the distal internal carotid arteries with extensive atherosclerotic calcificati on. Scattered moderate areas of stenosis in the bilateral vertebral arteries relate d to assess for calcification, as detailed above.
[2023-01-07 09:17] LABS: Basophils Percent Auto 0.6 % (0.2-1.2); Eosinophils Percent Auto 0.6 % (0-4.4); Hematocrit 43.6 % (42.0-52.0); Hemoglobin 14.7 g/dL (14.0-18.0); Immature Granulocyte Absolute 0.02 K/mm3 (0.00-0.031); Immature Granulocyte Percent A 0.3 % (0-0.5); Lymphocytes Absolute Auto 0.86 K/mm3 (0.9-3.2); Mean Corpuscular HGB Conc 33.7 g/dl (32-36); Mean Corpuscular Hemoglobin 38.7 pg (26-34); Mean Corpuscular Volume 114.7 fl (80-100); Mean Platelet Volume 9.8 fl (7.4-10.4); Monocytes Absolute Auto 0.4 K/mm3 (0.1-0.6); Monocytes Percent Auto 5.6 % (2.6-8.5); Neutrophils Absolute Auto 5.8 K/mm3 (1.3-6.7); Neutrophils Percent Auto 80.9 % (45.5-73.1); Platelet Count Result 189 k/mm3 (150-375); Red Cell Distribution Width 12.2 % (11.5-14.5); White Blood Count 7.2 K/mm3 (4.5-10.0)
[2023-01-07 09:28] LABS: Alanine Aminotransferase 16 U/L (6-50); Albumin Level 4.3 g/dL (3.5-5.1); Alkaline Phosphatase 33 U/L (38-126); Anion Gap 8 mmol/L (8-16); Aspartate Amino Transferase 18 U/L (17-59); Bilirubin,Total 0.6 mg/dL (0.2-1.3); Blood Urea Nitrogen 16 mg/dL (9-20); Calcium 9.4 mg/dL (8.4-10.2); Carbon Dioxide 20 mmol/L (22-30); Chloride 107 mmol/L (98-107); Estimated CRCL calculation 99 ml/min; Estimated Glomerular Filt Rate > 60; Glucose 183 mg/dL (65-110); Lipase 121 U/L (23-300); Potassium 3.9 mmol/L (3.4-5.0); Sodium 135 mmol/L (137-145)
--- NOTE | 2023-01-07 11:26 | ECG_ITS ---
Measurements Intervals [place] Rate: 82 P: 37 TN: 164 QRS: -28 QRSD: 102 T: 36 QT: 346 QTc: 406 Interpretive Statements SINUS RHYTHM BASELINE ARTIFACT INCOMPLETE RIGHT BUNDLE BRANCH BLOCK [90+ ms QRS DURATION, TERMINAL R IN V1/V2, 40+ ms S IN I/aVL/V4/V5/V6] CANNOT RULE OUT sEPTAL MYOCARDIAL INFARCTION , OF INDETERMINATE AGE [40+ ms Q WAVE IN V1/V2] ABNORMAL ECG NO PREVIOUS ECG AVAILABLE FOR COMPARISON Electronically Signed On 01-07-2023 17:22:57 CDT by Doc Gallardo M.D.
--- NOTE | 2023-01-07 11:27 | ED.DIZZY ---
HPI - Dizziness General Chief Complaint: Dizziness <ALEXIS Lee Last Filed: 01/07/23 20:12> Stated Complaint: Dizziness <ALEXIS Lee Last Filed: 01/07/23 20:12> Time Seen by Provider: 01/07/23 10:47 <ALEXIS Lee Last Filed: 01/07/23 20:12> Source: patient <ALEXIS Lee Last Filed: 01/07/23 20:12> Mode of arrival: ambulatory <ALEXIS Lee Last Filed: 01/07/23 20:12> Limitations: no limitations <ALEXIS Lee Last Filed: 01/07/23 20:12> History of Present Illness HPI Narrative: Patient is a 62-year-old male who presents to the ED with report of dizziness. Patient reports the dizziness began around 3 AM this morning however he was able to go back to sleep. When he woke up again, the dizziness was much more severe. He states the dizziness felt like everything was spinning around him. He felt very off balance. He noted having difficulty walking due to the dizziness. He also experienced nausea, vomiting, difficulty focusing, ringing in his left ear. Denied focal weakness, numbness, slurred speech, confusion, blurry vision, vision loss, headache, abdominal pain, chest pain, difficulty breathing. Patient has never had symptoms like this before. Symptoms are currently improved by the time of my evaluation. <ALEXIS Lee Last Filed: 01/07/23 20:12> Related Data Home Medications: Home Medications Medication Instructions Recorded Confirmed amlodipine 5 mg tablet 5 mg PO DAILY 07/14/19 05/20/22 lisinopril 10 mg tablet 10 mg PO DAILY 07/14/19 05/20/22 loperamide 2 mg capsule (Imodium 2 mg PO DAILY 07/14/19 05/20/22 A-D) omeprazole 40 mg capsule,delayed 40 mg PO DAILY 07/14/19 05/20/22 release ibuprofen 600 mg tablet 600 mg PO TID 12/02/21 05/20/22 <Abigail Myrick PA-C - Last Filed: 01/07/23 20:12> Allergies/Adverse Reactions: Allergies Allergy/AdvReac Type Severity Reaction Status Date / Time latex Allergy Unknown Swelling Verified 05/20/22 12:34 of Lip/Tongue/Throat Penicillins Allergy Unknown Verified 05/20/22 12:34 <Abigail Myrick PA-C - Last Filed: 01/07/23 20:12> Review of Systems Review of Systems: CONSTITUTIONAL: Denies fever, chills, or sweats. EYES: See HPI. ENT: See HPI. CARDIOVASCULAR: Denies chest pain. RESPIRATORY: Denies dyspnea. GASTROINTESTINAL: See HPI. MUSCULOSKELETAL: Denies back pain, joint pain, or myalgia. NEUROLOGIC: See HPI. <Abigail Myrick PA-C - Last Filed: 01/07/23 20:12> All systems reviewed & are unremarkable except as noted in HPI and below <Abigail Myrick PA-C - Last Filed: 01/07/23 20:12> [facility] Past Medical History Medical History: Medical History Carlos esophagus Colon cancer screening COPD (chronic obstructive pulmonary disease) Depression Dysphagia Esophageal foreign body ETOH abuse HTN (hypertension) <Abigail Myrick PA-C - Last Filed: 01/07/23 20:12> Surgical History Surgical History: Surgical History H/O colectomy History of nephrectomy <Abigail Myrick PA-C - Last Filed: 01/07/23 20:12> Family History Family History: Family History Sibling Family history of diabetes mellitus in first degree relative Mother Family history of lymphoma Patient's mother is Father Carcinoma of colon <Abigail Myrick PA-C - Last Filed: 01/07/23 20:12> Social History Social History: Social History Smoking packs per day: 2 Smoking cigarettes per day: 40.0 Years smoked: 45 Smoking pack-years: 90.00 Smoking status: Heavy tobacco smoker Tobacco type: cigarettes Alcohol i
[2023-01-07] MEDS: ONDANSETRON INJ 4 MG/2 ML VIAL IV PUSH (12:01)
[2023-01-07] MEDS: SODIUM CHLORIDE 0.9% IV 1,000 ML 999 ML IV CONT (12:01)
[2023-01-07] MEDS: MECLIZINE HCL 25 MG TABLET PO (12:01)
[2023-01-07 12:08] LABS: Troponin I < 0.012 ng/mL (0.000-0.034)
[2023-01-07] MEDS: ASPIRIN 81 MG CHEWABLE TABLET 324 MG PO (13:08)
--- NOTE | 2023-01-07 16:00 | PC.NURSE ---
Patient found outside ED entrance smoking in street clothes. Patient informed he cannot leave his room and must come back inside. Patient states, I'm not going anywhere. I'll be in, in a minute .
--- NOTE | 2023-01-07 16:12 | PC.NURSE ---
Patient offered nicotine patch and refused.
--- NOTE | 2023-01-07 16:12 | PC.NURSE ---
Patient back in room. Patient refusing to put gown on.
--- NOTE | 2023-01-07 17:46 | PC.NURSE ---
pt has sydnee refusing BP and leaving cardiac leads. Pt wants to go outside and smoke. Pt irritable waiting for acceptance
[2023-01-07] MEDS: LORazepam INJ (*CRX) 2 MG/ML VIAL 0.5 MG IV PUSH (18:09)
--- NOTE | 2023-01-08 00:28 | PC.NURSE ---
spoke w/ [facility] transfer center for update. reporting [facility] is at capacity and will not be getting a bed at this time.
[2023-01-08 05:00] VITALS: BP 123/78; PULSE 80; RESP 19; O2SAT 99
[2023-01-08 07:10] VITALS: BP 143/77; PULSE 77; RESP 18; O2SAT 98
--- NOTE | 2023-01-08 08:12 | PC.NURSE ---
Pt received bed at [facility], 131-1. number for report [phone]. Pt refusing ambulance transfer and taking private car.
[2023-01-08 08:35] VITALS: BP 170/67; PULSE 86; RESP 18; O2SAT 100
== END 2023-01-08 08:46 | disposition short-term general hospital (02) ==
PROVIDERS: Emergency Medicine; Physician Assistant; Emergency Provider Emergency Medicine; PCP Physician Assistant
DX: I63.50 Cerebral infarction due to unspecified occlusion or stenosis of unspecified cerebral artery (principal); I65.03 Occlusion and stenosis of bilateral vertebral arteries; I65.23 Occlusion and stenosis of bilateral carotid arteries; R42 Dizziness and giddiness; H61.21 Impacted cerumen, right ear; J44.9 Chronic obstructive pulmonary disease, unspecified; I10 Essential (primary) hypertension; K22.70 Barrett's esophagus without dysplasia; F17.210 Nicotine dependence, cigarettes, uncomplicated; I45.10 Unspecified right bundle-branch block; R94.31 Abnormal electrocardiogram [ECG] [EKG]
CPT/HCPCS: 36415; 70450; 70496; 70498; 80053; 83690; 84484; 85025; 93005; 96361; 96374; 96375; 99285; A9270; J2060; J2405; J7030; Q9967